=== PATIENT | female | born 1955 | race Caucasian/White ===

== ENCOUNTER 2016-12-07 15:05 | Emergency (ER) | payer BC ==
[2016-12-07 15:18] VITALS: BP 121/74
--- NOTE | 2016-12-07 15:53 | RAD ---
Indication: Pain after chair fell on ankle. Comparison: No relevant prior exams available on the [facility] [facility] [place]. Technique: AP, mortise, and lateral views RIGHT ankle. Report: Soft tissue swelling over the lateral malleolus and anterior aspect of the ankle. Negative for fracture or malalignment. Preserved joint spaces. Small Achilles tendon insertion and plantar fascia origin bone spurs. IMPRESSION: Soft tissue swelling without additional radiographic evidence for injury.
--- NOTE | 2016-12-07 16:20 | UC ---
Lower Extremity/Ankle HPI - HPI Summary HPI Summary: The patient comes in today for: 1. Right ankle soreness: Onset: 9 days ago. Palliative/provocative: Ecotrin helped. Elevation makes it better. Walking makes it worse. Quality: Ache Region: Right lateral ankle. Severity: 5/10 at rest. Walking: about the same. Associated symptoms: She dropped a chair on the lateral ankle. Pain happened right away. Previous treatment: Ice used last night. She has been using EFRAIN bandage since then. Ecotrin used for pain--i tid--some help. Previous injury: None. * - History of Current Complaint Chief Complaint: UCLowerExtremity Stated Complaint: ANKLE INJURY-RIGHT Time Seen by Provider: 12/07/16 15:33 Hx Obtained From: Patient - Allergies/Home Medications Allergies/Adverse Reactions: Allergies Allergy/AdvReac Type Severity Reaction Status Date / Time Banana Allergy Nausea Verified 01/06/16 08:20 Cyclobenzaprine Allergy Rash Verified 01/06/16 08:20 [From Flexeril] Oxycodone [From Oxycontin] Allergy ITCHINESS Verified 01/06/16 08:20 ENVIRONMENTAL/HAYFEVER Allergy SNEEZE, Uncoded 01/06/16 08:20 COUGH, STUFFY, SOB, MIGRAINE PMH/Surg Hx/FS Hx/Imm Hx Previously Healthy: No Respiratory History: Asthma - Surgical History Surgical History: Yes Surgery Procedure, Year, and Place: TONSILECTOMY/ADENOIDS AGE 20-. 1983 & 1987 [place], [facility] [place]. 2000 RIGHT [place] [facility] [place] LEFT WRIST [place] [facility] [place] [facility] [place] [facility] [place] CYST REMOV[place] FROM NECK 2016 - Family History Known Family History: Negative: Hypertension, Diabetes, Respiratory Disease - Social History Occupation: Employed Full-time Alcohol Use: Weekly Alcohol Amount: 2-3 TIMES Substance Use Type: None Smoking Status (MU): Never Smoked Tobacco Type: Cigarettes Amount Used/How Often: 3 YEARS A TEENAGER Have You Smoked in the Last Year: No Review of Systems Constitutional: Negative Skin: Negative Eyes: Negative ENT: Nasal Discharge - She states that for the last 3 weeks, she has been blowing her nose producing yellow material. She has sinus pressure. Respiratory: Negative Cardiovascular: Negative Gastrointestinal: Negative All Other Systems Reviewed And Are Negative: Yes Physical Exam Triage Information Reviewed: Yes Appearance: Well-Appearing, No Pain Distress, Well-Nourished Vital Signs: Initial Vital Signs Temp 98.7 F 12/07/16 15:14 Pulse 74 12/07/16 15:14 Resp 16 12/07/16 15:14 BP 121/74 12/07/16 15:14 Pulse Ox 100 12/07/16 15:14 Vital Signs Reviewed: Yes Eyes: Positive: Conjunctiva Clear. Negative: Discharge ENT: Positive: Hearing grossly normal. Negative: Pharyngeal erythema, Nasal congestion, Nasal drainage, TM bulging, TM dull, TM red, Tonsillar swelling, Tonsillar exudate Dental: Negative: Gross Decay/Caries @, Dental Fracture @ Neck: Positive: Supple, Nontender, No Lymphadenopathy. Negative: Nuchal Rigidity Respiratory: Positive: Chest non-tender, No respiratory distress, No accessory muscle use. Negative: Crackles, Wheezing Cardiovascular: Positive: No Murmur Abdomen Description: Positive: Nontender, No Organomegaly, Soft. Negative: Distended, Guarding Musculoskeletal: Positive: Strength Intact, ROM Intact, No Edema, Other: - There is tenderness to palpation of the right lateral malleolus. But, there is no erythema or ecchymosis. Fabian test was normal and no depression of the Achilles tendon with slight dorsiflexion. Neurological: Positive: Alert, Muscle Tone Normal Psychological: Positive: Age Appropriate Behavior, Consolable Diagnostics - Radiology No standard instances Xray Interpretation: No Acute Changes - IMPRESSION: Soft tissue swelling without additional radiographic evidence for injury. Radiology Interpretation Completed By: Radiologist - IMPRESSION: Soft tissue swelling without additional radiographic evidence for injury. Lower Extremity Course/Dx - Course Course Of Treatment: She declined any treatment while in the office. - Differential Dx/Diagnosis Provider Diagnoses: Contusion right lateral ankle. Discharge - Discharge Plan Condition: Stable Disposition: HOME Patient Education Materials: Contusion in Adults (ED) Referrals: Shon WALLACE,Randell Weaver [Primary Care Provider] - 1 Week (Please see your primary care provider in 1 weeks. If yoy get worse, please be seen sooner through your primary care provider us or the ER. If you can't get in timely, you can come in to see us.)
== END 2016-12-07 16:43 | disposition home or self-care (01) ==
LOC: UCEAST 15:05
DX: S90.01XA Contusion of right ankle, initial encounter (principal); Z87.891 Personal history of nicotine dependence; W20.8XXA Other cause of strike by thrown, projected or falling object, initial encounter; Y92.9 Unspecified place or not applicable; Z88.5 Allergy status to narcotic agent
CPT/HCPCS: 99211; G0463

== ENCOUNTER 2016-12-24 11:36 | Emergency (ER) | payer SELFPAY ==
[2016-12-24] MEDS ORDERED: Tetan/Diph/Pertus SYR(Tdap)* 0.5 ML SYR(BOOSTRIX) use SYR IM ONE (12:55)
[2016-12-24] MEDS ORDERED: Lidocaine 2% PF * 5 ML VIAL INJ ONE (12:56)
--- NOTE | 2016-12-24 13:52 | RAD ---
HISTORY: Pain and swelling, fall on outstretched hand COMPARISONS: None VIEWS: 4, Frontal, lateral, and oblique views of the right hand FINDINGS: BONE DENSITY: Normal. BONES: There is no displaced fracture. JOINTS: There is minimal juxta-articular erosion and calcification along the radial aspects of the fourth and fifth proximal interphalangeal joints ALIGNMENT: There is no dislocation. SOFT TISSUES: Unremarkable. OTHER FINDINGS: None. IMPRESSION: 1. NO ACUTE OSSEOUS INJURY. 2. 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 3. IF SYMPTOMS PERSIST, RECOMMEND REPEAT IMAGING.
--- NOTE | 2016-12-24 14:23 | UC ---
Hand/Wrist HPI - HPI Summary HPI Summary: FALL ONTO RIGHT HAND RIGHT KNEE, UNABLE TO REMOVE RING FROM RIGHT RING FINGER DUE TO SOFT TISSUE SELLING AND BRUISING. - History Of Current Complaint Chief Complaint: UCUpperExtremity Stated Complaint: RT FINGER INJURY-RING NEEDS CUTTING Time Seen by Provider: 12/24/16 12:48 Hx Obtained From: Patient Onset/Duration: Sudden Onset, Lasting Days, Still Present Severity Initially: Mild Character Of Pain: Aching Aggravating Factor(s): Movement, Flexion, Extension Alleviating: Nothing Associated Signs And Symptoms: Positive: Swelling, Bruising Related History: Dominant Hand Right - Allergies/Home Medications Allergies/Adverse Reactions: Allergies Allergy/AdvReac Type Severity Reaction Status Date / Time Banana Allergy Nausea Verified 12/24/16 12:42 Cyclobenzaprine Allergy Rash Verified 12/24/16 12:42 [From Flexeril] Oxycodone [From Oxycontin] Allergy ITCHINESS Verified 12/24/16 12:42 ENVIRONMENTAL/HAYFEVER Allergy SNEEZE, Uncoded 12/24/16 12:42 COUGH, STUFFY, SOB, MIGRAINE Home Medications: Home Medications B-Complex Vitamins [Vitamin B Complex] 1 tab PO DAILY 12/24/16 [History Confirmed 12/24/16] Cyanocobalamin [Vitamin B 12] 1 tab PO SEE INSTRUCTIONS 12/24/16 [History Confirmed 12/24/16] Naproxen [Naproxen DR 500 MG TAB] 1 tab PO BID PRN 12/24/16 [History Confirmed 12/24/16] PMH/Surg Hx/FS Hx/Imm Hx Previously Healthy: Yes - Surgical History Surgical History: Yes Surgery Procedure, Year, and Place: TONSILECTOMY/ADENOIDS AGE 20-. 1983 & 1987 C SECTION, [facility] [place]. 2000 RIGHT SHOULDER SURGERY, [facility] [place] 2012 LEFT WRIST SURGERY, [facility] [place] 2008 & 2010 POLYPS REMOVED FROM UTERUS, [facility] [place]. [place]-LEFT FOOT- [facility] [place] CYST REMOVED FROM NECK 2016 - Family History Known Family History: Negative: Hypertension, Diabetes, Respiratory Disease - Social History Occupation: Employed Full-time Lives: With Family Alcohol Use: Weekly Alcohol Amount: 2-3 TIMES Substance Use Type: None Smoking Status (MU): Never Smoked Tobacco Type: Cigarettes Amount Used/How Often: 3 YEARS A TEENAGER Have You Smoked in the Last Year: No Review of Systems Constitutional: Negative Skin: Bruising, Other - RING CONSTRICTING RIGHT 4TH FINGER Eyes: Negative ENT: Negative Respiratory: Negative Cardiovascular: Negative Gastrointestinal: Negative Genitourinary: Negative Motor: Negative Neurovascular: Negative Musculoskeletal: Arthralgia - RIGHT HAND, Edema - RIGHT HAND, Myalgia - RIGHT HAND Neurological: Negative Psychological: Negative All Other Systems Reviewed And Are Negative: Yes Physical Exam Triage Information Reviewed: Yes Appearance: Well-Appearing, No Pain Distress, Well-Nourished Vital Signs: Initial Vital Signs Temp 98.7 F 12/24/16 12:38 Pulse 59 12/24/16 12:38 Resp 16 12/24/16 12:38 BP 142/99 12/24/16 12:38 Pulse Ox 99 12/24/16 12:38 Vital Signs Reviewed: Yes Eye Exam: Normal ENT Exam: Normal ENT: Positive: Normal ENT inspection, TMs normal Dental Exam: Normal Neck exam: Normal Neck: Positive: Supple, Nontender Respiratory Exam: Normal Respiratory: Positive: Chest non-tender, Lungs clear, Normal breath sounds, No respiratory distress Cardiovascular Exam: Normal Cardiovascular: Positive: RRR, No Murmur Abdominal Exam: Normal Abdomen Description: Positive: Nontender Musculoskeletal: Positive: Strength Intact, ROM Limited @ - RIGHT HAND, Edema @ - RIGHT HAND Neurological Exam: Normal Psychological Exam: Normal Skin: Positive: Other Procedures - Procedure Summary Procedure Summary: RING REMOVED FROM RIGHT 4TH FINGER USING DIGITAL BLOCK, METAL CUTTERS AND NEEDLENOSE PLYERS. NO ADDITIONAL INJURY, PATIENT TOLERATED PROCEDURE WELL. Hand/Wrist Course/Dx - Differential Dx/Diagnosis Differential Diagnosis/HQI/PQRI: Contusion, Fracture, Sprain, Strain Provider Diagnoses: RIGHT HAND SPRAIN/CONTUSION; RING REMOVAL RIGHT FOURTH FINGER Discharge - Discharge Plan Condition: Stable Disposition: HOME Patient Education Materials: Contusion in Adults (ED), Hand Sprain (ED) Forms: *Work Release Referrals: [facility] [Outside] Shon WALLACE,Randell Weaver [Primary Care Provider] - Additional Instructions: RING REMOVED FROM RIGHT HAND.
[2016-12-24 14:30] VITALS: BP 136/72
== END 2016-12-24 14:20 | disposition home or self-care (01) ==
LOC: UCEAST 11:36
DX: S63.91XA Sprain of unspecified part of right wrist and hand, initial encounter (principal); S60.221A Contusion of right hand, initial encounter; W19.XXXA Unspecified fall, initial encounter; Y93.9 Activity, unspecified; Y92.9 Unspecified place or not applicable; Y99.9 Unspecified external cause status
CPT/HCPCS: 90471; 90715; 96372; 99212; G0463

== ENCOUNTER 2019-08-07 16:09 | Emergency (ER) | payer BC ==
[2019-08-07 16:50] VITALS: BP 124/82
--- NOTE | 2019-08-07 18:01 | UC ---
Complaint Female HPI - HPI Summary HPI Summary: 3 day history of dysuria, urgency and frequency. She has had 2 weeks of low back ache, for which she has seen a chiropracter. Todayt has a low grade fever in addition to this. No nausea, vomiting or diarrhea. 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 - History Of Current Complaint Chief Complaint: UCGU Stated Complaint: PERSONAL Time Seen by Provider: 08/07/19 17:54 Hx Obtained From: Patient Onset/Duration: Gradual Onset Timing: Constant Severity Initially: Moderate Severity Currently: Moderate Pain Intensity: 5 Character: Burning Aggravating Factor(s): Urination Alleviating Factor(s): Nothing Associated Signs And Symptoms: Positive: Fever, Back Pain. Negative: Vaginal Bleeding/Discharge, Vaginal Discharge - Risk Factors Ectopic Risk Factor: Negative Ovarian Torsion Risk Factor: Negative - Allergies/Home Medications Allergies/Adverse Reactions: Allergies Allergy/AdvReac Type Severity Reaction Status Date / Time banana Allergy Nausea Verified 08/07/19 16:52 cyclobenzaprine Allergy Rash Verified 08/07/19 16:52 oxycodone Allergy Itching Verified 08/07/19 16:52 ENVIRONMENTAL/HAYFEVER Allergy SNEEZE, Uncoded 12/24/16 12:42 COUGH, STUFFY, SOB, MIGRAINE Home Medications: Home Medications Albuterol HFA INHALER* [Ventolin HFA Inhaler*] 1 puff INH Q6HR PRN 08/07/19 [ History Confirmed 08/07/19] Citalopram TAB* [Celexa TAB*] 10 mg PO DAILY 08/07/19 [History Confirmed ] Gabapentin [Neurontin] 1,200 mg PO DAILY 08/07/19 [History Confirmed 08/07/19] Pseudoephedrine HCl [Sudafed] 30 mg PO Q6HR 08/07/19 [History Confirmed 08/07/19 ] guaiFENesin [Mucinex] 600 mg PO Q6HR 08/07/19 [History Confirmed 08/07/19] PMH/Surg Hx/FS Hx/Imm Hx Previously Healthy: Yes Psychological History: Anxiety, Depression - Surgical History Surgical History: Yes Surgery Procedure, Year, and Place: TONSILECTOMY/ADENOIDS AGE 20-. 1983 & 1987 C SECTION, [facility] [place]. 2000 RIGHT SHOULDER SURGERY, [facility] [place]. 2012 LEFT WRIST SURGERY, [facility] [place]. 2008 & 2010 POLYPS REMOVED FROM UTERUS, [facility] [place]. 2016-LEFT FOOT- [facility] [place]. CYST REMOVED FROM NECK 2016 - Family History Known Family History: Positive: Other - mother of ALS Negative: Hypertension, Diabetes, Respiratory Disease - Social History Occupation: Employed Full-time Alcohol Use: Weekly Alcohol Amount: 2-3 TIMES Substance Use Type: None Smoking Status (MU): Never Smoked Tobacco Type: Cigarettes Amount Used/How Often: 3 YEARS A TEENAGER Have You Smoked in the Last Year: No Review of Systems All Other Systems Reviewed And Are Negative: Yes Constitutional: Positive: Fever, Fatigue Skin: Positive: Negative Eyes: Positive: Negative ENT: Positive: Negative Respiratory: Negative: Shortness Of Breath, Cough Cardiovascular: Negative: Chest Pain Gastrointestinal: Negative: Abdominal Pain, Vomiting, Diarrhea, Nausea Genitourinary: Positive: Dysuria, Frequency, Urgency Motor: Positive: Negative Neurovascular: Positive: Negative Musculoskeletal: Positive: Negative Neurological/Mental Status: Positive: Other - takes gabapentin for brachial pruritus Psychological: Positive: Negative Is Patient Immunocompromised?: No Physical Exam Triage Information Reviewed: Yes Appearance: Well-Appearing, Pain Distress - mildly uncomfortable. Vital Signs: Initial Vital Signs Temp 99.9 F 08/07/19 16:44 Pulse 85 08/07/19 16:44 Resp 16 08/07/19 16:44 BP 124/82 08/07/19 16:44 Pulse Ox 98 08/07/19 16:44 ENT: Positive: Pharynx normal, TMs normal Neck: Positive: Supple Respiratory: Positive: Lungs clear, Normal breath sounds Abdomen Description: Positive: Nontender, No Organomegaly, Soft, CVA Tenderness (R) - mild, CVA Tenderness (L) - mild Musculoskeletal Exam: Normal Neurological Exam: Normal Psychological Exam: Normal Skin Exam: Other - scars due to pruritis Complaint Female Dx - Course Course Of Treatment: begin bactrim, culture urine, rest at home tomorrow. - Differential Dx/Diagnosis Differential Diagnosis/HQI/PQRI: Ureteral Stone, Urinary Tract Infection Provider Diagnosis: UTI (urinary tract infection) Discharge ED - Sign-Out/Discharge Documenting (check all that apply): Patient Departure All imaging exams completed and their final reports reviewed: No Studies - Discharge Plan Condition: Stable Disposition: HOME Prescriptions: Sulfamethox/Trimethoprim DS* [Bactrim DS 800/160 TAB*] 1 tab PO BID #14 tab Patient Education Materials: Urinary Tract Infection in Women (ED) Forms: *Work Release Referrals: Shon WALLACE,Randell Weaver [Primary Care Provider] - Additional Instructions: Increase fluids and stay well hydrated. Take the full course of bactrim. Urine culture will be sent and you will be notified if a change of antibiotics is needed. Follow up if you develop fever, vomiting or do not respond to the antibiotics by 08/10/19. - Billing Disposition and Condition Condition: STABLE Disposition: Home
== END 2019-08-07 18:23 | disposition home or self-care (01) ==
LOC: UCEAST 16:09
DX: N39.0 Urinary tract infection, site not specified (principal); F41.9 Anxiety disorder, unspecified; F32.9 Major depressive disorder, single episode, unspecified; R53.83 Other fatigue; Z79.899 Other long term (current) drug therapy; Z91.09 Other allergy status, other than to drugs and biological substances; Z88.5 Allergy status to narcotic agent; Z91.018 Allergy to other foods; Z88.8 Allergy status to other drugs, medicaments and biological substances
CPT/HCPCS: 81003; 87077; 87086; 87186; 99212; G0463

== ENCOUNTER 2024-04-08 14:38 | Observation (INO) ==
[2024-04-08 15:31] LABS: ABS Lymphocytes 0.6 10^3/uL (1.0-4.8); ABS Monocytes 0.7 10^3/uL (0.0-0.9); ABS Neutrophils 11.3 10^3/uL (1.5-7.6); Hematocrit 40.3 % (35-45); Hemoglobin 13.8 g/dL (11.5-14.3); Lymphocyte % 4.4 %; Mean Corpuscular Hemoglobin 32.2 pg (27-33); Mean Corpuscular Hgb Conc 34.2 g/dL (31-36); Mean Corpuscular Volume 94.2 fL (80-97); Mean Platelet Volume 6.8 fL (7.5-11.2); Platelet Count 205 10^3/uL (150-450); Red Blood Count 4.28 10^6/uL (3.63-4.92); Red Cell Distribution Width 12.9 % (12-17); White Blood Count 12.6 10^3/uL (3.8-11.8)
[2024-04-08 15:50] LABS: Urine Appearance Turbid; Urine Bilirubin Negative (Negative); Urine Blood Negative (Negative); Urine Color Yellow; Urine Glucose Negative (Negative); Urine Ketones Negative (Negative); Urine Nitrite Negative (Negative); Urine Protein 1+ (>=30 mg/dL) (Negative); Urine Specific Gravity 1.031 (1.002-1.030); Urine Urobilinogen Negative (Negative)
[2024-04-08 16:15] LABS: Urine Bacteria Absent /HPF (Absent); Urine Red Blood Cell 1+(3-5/hpf) /HPF (0-Trace); Urine Squamous Epithelial Cell Present /HPF (Absent); Urine White Blood Cell 3+(>20/hpf) /HPF (0-Trace)
[2024-04-08 16:20] LABS: ALT 12 U/L (7-52); AST 14 U/L (13-39); Albumin 3.8 g/dL (3.2-5.2); Albumin/Globulin Ratio 1.7 (1-3); Alkaline Phosphatase 63 U/L (35-149); Anion Gap 8 mmol/L (2-16); Blood Urea Nitrogen 13 mg/dL (6-24); C Reactive Protein 279.93 mg/L (<8.01); CO2 Carbon Dioxide 27 mmol/L (22-32); Chloride 93 mmol/L (101-111); Creatinine, Serum 0.67 mg/dL (0.51-0.95); Globulin 2.3 g/dL (2-4); Glucose 138 mg/dL (70-100); Lipase < 10 U/L (11.0-82.0); Magnesium 1.7 mg/dL (1.9-2.7); Potassium 3.6 mmol/L (3.5-5.0); Sodium 128 mmol/L (135-145); Total Bilirubin 1.4 mg/dL (0.2-1.0); Total Protein 6.1 g/dL (6.4-8.9); eGFR CKD-EPI 95.7 (>60)
[2024-04-08] MEDS: Iohexol 300 (CONTRAST) 10 ML SDV IV ONE (16:44)
[2024-04-08] MEDS: NS 0.9% 1000 ml BAG 1,000 ML IV ONE (18:25)
[2024-04-08] MEDS ORDERED: Propofol 10 MG/ML 20 ML BTL ONE (18:25)
[2024-04-08] MEDS: Piperacillin/Tazobac 3.375 BAG 3.375 GM/100 ML BAG IV ONE (18:25)
[2024-04-08] MEDS ORDERED: Ondansetron 4 mg VIAL 2 MG/ML 2 ml VIAL IV PRN ×2 (18:26→20:04)
[2024-04-08] MEDS ORDERED: Rocuronium 50 mg VIAL 10 mg/ml 5 ml VIAL (50 mg) ONE (18:26)
[2024-04-08] MEDS ORDERED: Lidocaine 2% PF 5 ML VIAL ONE (18:26)
[2024-04-08] MEDS ORDERED: Succinylcholine 200 mg VIAL 20 mg/ml 10 ml VIAL (200 mg) ONE (18:26)
[2024-04-08] MEDS ORDERED: Bupivacaine 0.25% w/EPI 10 ML SDV ONE (18:35)
[2024-04-08] MEDS ORDERED: Midazolam 2 mg/2 ml VIAL 1 mg/ml 2 ml VIAL (2 mg) ONE (18:47)
[2024-04-08] MEDS ORDERED: fentaNYL 100 mcg/2 ml 50 MCG/ML VIAL ONE (18:47)
[2024-04-08] MEDS ORDERED: Sevoflurane BOTTLE ONE (18:49)
[2024-04-08] MEDS ORDERED: Phenylephrine IV 10 MG/ML 1 ml VIAL ONE (19:10)
[2024-04-08] MEDS ORDERED: Dexamethasone IV 4 MG/ML VIAL 1 ml VIAL ONE (19:39)
[2024-04-08] MEDS ORDERED: Ondansetron 4 mg VIAL 2 MG/ML 2 ml VIAL ONE (19:39)
[2024-04-08] MEDS ORDERED: Metoclopramide 5 MG/ML VIAL (10 mg) IV PRN (20:04)
[2024-04-08] MEDS ORDERED: Naloxone 0.4 mg VIAL 0.4 mg/ml 1 ml VIAL IV PRN (20:04)
[2024-04-08] MEDS ORDERED: fentaNYL 100 mcg/2 ml 50 MCG/ML VIAL IV PRN (20:04)
[2024-04-08] MEDS ORDERED: Acetaminophen IV 1 GM/100ML 1,000 MG/100 ML BAG IV ONE (20:07)
[2024-04-08] MEDS: Acetaminophen IV 1 GM/100ML 1,000 MG/100 ML BAG IV ONE (20:09)
[2024-04-08] MEDS ORDERED: NS 0.45% 1000 ml BAG 1,000 ML IV SCH (21:00)
[2024-04-08] MEDS: HYDROmorphone 0.5 MG/0.5 ML SYRINGE IV SLOW PU PRN (23:01)
[2024-04-08] MEDS: NS 0.9% 1000 ml BAG 1,000 ML IV SCH (23:02)
[2024-04-08] MEDS: Piperacillin/Tazobac 3.375 BAG 3.375 GM/100 ML BAG IV SCH (23:38)
[2024-04-09] MEDS: Buffered Lidocaine 1% SYRIN 1 ml INTRADERM ONE (03:28)
[2024-04-09] MEDS: Scopolamine 1 mg/72hr PATCH TRANSDERM ONE (03:28)
[2024-04-09 06:37] LABS: Calcium 8.3 mg/dL (8.6-10.3); Creatinine, Serum 0.62 mg/dL (0.51-0.95); Potassium 3.9 mmol/L (3.5-5.0); eGFR CKD-EPI 97.5 (>60)
[2024-04-09] MEDS: Lactated Ringers 1000 ml BAG 1,000 ML IV SCH ×2 (07:38→07:39)
[2024-04-09] MEDS: Morphine 4 MG/ML VIAL (1 ml) IV ONE (07:40)
[2024-04-09] MEDS: Magnesium Sulfate 2 gm BAG 2 GM/50 ML BAG IVPB ONE (07:46)
[2024-04-09 13:54] VITALS: BP 111/71
== END 2024-04-09 14:39 | disposition home or self-care (01) ==
LOC: EDHOLD 14:38 → ED 14:38 → AA 18:49 → SSU 19:00
PROVIDERS: ADMIT Surgery; ATTEND Surgery